=== PATIENT | female | born 1985 | race Caucasian/White ===

== ENCOUNTER 2022-08-06 08:05 | Day surgery (SDC) | payer OTHER ==
[~2022-08-06] VITALS: Ht 157.5 cm; Wt 54.4 kg
--- NOTE | 2022-08-06 07:30 | NUR ---
PT AMBULATED TO ROOM, PT A&OX4. PT HAS BEEN OREINETD TO ROOM, CALL LIGHT AND POC. PT HAS NO QUESTIONS AT THIS TIME. PT BELONGINGS ARE AT BEDSIDE. PT IN NAD. PT HAS CALL LIGHT NEAR AND IS ABLE TO MAKE NEEDS KNOWN. WILL CONTINUE TO MONITOR.
[2022-08-06 07:45] VITALS: BP 102/73
[2022-08-06 08:51] LABS: HEMATOCRIT 33.4 % (37.0-47.0); HEMOGLOBIN 10.9 g/dl (12.0-16.0); IMMATURE GRANULOCYTES 0.1 % (0.0-5.0); MEAN CELL VOLUME 85.6 fL CALC (80.0-100.0); MEAN CORPUSCULAR HGB 27.9 pG CALC (26.0-32.0); MEAN CORPUSCULAR HGB CONC 32.6 g/dL CAL (32.0-36.0); NEUT# 3.45 thou/uL (2.00-7.15); RED BLOOD COUNT 3.9 mill/uL (4.20-5.60)
[2022-08-06] MEDS ORDERED: TRINTELLIX10 MG PO (08:51)
[2022-08-06] MEDS ORDERED: ADDERALL20 MG PO (08:53)
[2022-08-06] MEDS ORDERED: KLONOPIN1 MG PO (08:54)
[2022-08-06] MEDS ORDERED: CRYSELLE-2828 TABS PO (08:54)
[2022-08-06 09:02] LABS: ALBUMIN 3.9 g/dL (3.2-5.0); ALKALINE PHOSPHATASE 101 u/l (38-126); ANION GAP 12 (6-22 (CALC)); BILIRUBIN, TOTAL 0.3 mg/dL (0.0-1.4); BUN 8 mg/dL (7-17); BUN/CREATININE RATIO 14 (12-20 (CALC)); CARBON DIOXIDE 29 mmol/l (22-30); CHLORIDE 103 mmol/l (95-108); CREATININE 0.6 mg/dL (0.5-1.0); GFR FOR AFR.AMER. > 60 ML/MIN (>=60 (CALC)); GFR OTHER RACES > 60 ML/MIN (>=60 (CALC)); POTASSIUM 4.5 mmol/l (3.5-5.1); SGOT/AST 46 u/l (14-36); SODIUM 139 mmol/l (137-146); TOTAL PROTEIN 7.1 g/dL (6.3-8.2)
[2022-08-06 09:45] VITALS: BP 93/53
--- NOTE | 2022-08-06 09:50 | NUR ---
PT REASSESSED PT IS SLEEPING EASILY AROUSED PT HAS C/O TEMPERATURE. BEARHUGGER HAS BEEN PLACED. PT HAS CALL LIGHT NEAR.
--- NOTE | 2022-08-06 13:50 | NUR ---
Induction Note Patient to [facility] procedure room. Time out performed at 1350. Patient placed on monitors, Jayashree hugger, bilateral wrist restraints applied for ET tube protection. Versed 5mg given IV push at 1351 Tourniquet applied to LEFT arm Lidocaine 100mg given [id number] IV push followed by Rocoronium 10mg at 1353 IV push and held for 90 seconds. Propofol bolus of 110mg given at 1355 IV push. Succinylcholine 80mg given IV push at 1356. Smooth intubation with 7.5 ETT. Positive CO2. Positive Auscultation for air exchange. Patient placed on ventilator for spontaneous ventilation. Placed on Propofol IV drip at 1357. OG inserted. Positive air on auscultation. Positive gastric content. Stomach washed at this time.
--- NOTE | 2022-08-06 14:00 | NUR ---
OG close note Stomach washed at this time. Naltrexone 50 mg with Clonidine 0.1 mg via OG tube. OG will be clamped for 45 minutes.
--- NOTE | 2022-08-06 14:45 | NUR ---
OG open note OG open at this time. Gastric content draining into drainage bag. OG to drain for 45 minutes. Propofol will be titrated down based on patient.
--- NOTE | 2022-08-06 15:18 | NUR ---
PT HYPOTENSIVE, ALEXA GTT INFUSING. WILL CONTINUE TO MONITOR AND TITRATE PER PROTOCOL.
--- NOTE | 2022-08-06 15:30 | NUR ---
OG close note Stomach washed at this time. Naltrexone 25 mg via OG tube. OG will be clamped for 45 minutes.
[2022-08-06] MEDS ORDERED: NALTREXONE50 MG PO (16:53)
[2022-08-06] MEDS ORDERED: CLONIDINE0.1 MG PO (16:54)
[2022-08-06] MEDS ORDERED: KLONOPIN2 MG PO (17:00)
--- NOTE | 2022-08-06 18:15 | NUR ---
ORDERS R'CD PT IM INJECTION 25MG OF EPHEDRINE.
--- NOTE | 2022-08-06 19:34 | NUR ---
OG close note Stomach washed at this time. Naltrexone 25 mg via OG tube. OG will be clamped for 45 minutes.
--- NOTE | 2022-08-06 20:14 | NUR ---
Extubation note Closing medications given Benadryl 50mg IV push, Decadron 10mg IV push,Magnesium 4 grams IV, Zofran 8mg IV push, Octreotide 100mcg SC. Stomach washed out prior to extubation. Suctioned gastric content. OG removed. Patient extubated. Propofol Discontinued. Wrist restraints removed. Jayashree hugger Removed. See [facility] Moderate sedate recovery record for further notes and assessment.
--- NOTE | 2022-08-06 20:35 | NUR ---
PT HAS BEEN TRANSFERRED TO [facility] UNIT. PT IS AROUSABLE. PT IS ON 2LNC, PT HAS LR INFUSING @ 125ML/HR. PT VSS. REPORT WAS GIVEN TO ALFONSO BROOKS AND RIN CRUZ. PT BED ALARM ACTIVE. PT BELONGINGS PLACED IN DIRECTORS OFFICE.
[2022-08-06 20:36] VITALS: BP 97/54
--- NOTE | 2022-08-06 20:40 | NUR ---
PT ARRIVED TO [place] ACCOMPANIED BY ALFONSO TRISTAN. RECEIVED BEDSIDE REPORT. PT SLEEPING, STILL DROWSY. EVEN AND UNLABORED RESPIRATIONS; CLEAR LUNG SOUNDS UPON AUSCULTATION. 02 @ 2L VIA NASAL CANNULA IN PLACE. IV SITES HEALTHY AND PATENT. HYPOACTIVE BOWEL SOUNDS X4 QUADRANTS. NON TRACE EDEMA NOTED ON KALIN LOWER EXTREMITIES. BED ALARM ACTIVE AND SAFETY PRECAUTIONS IN PLACE. CALL LIGHT IN REACH.
[2022-08-06 22:43] VITALS: BP 99/55
--- NOTE | 2022-08-06 23:56 | NUR ---
PT RESTING WITH EYES CLOSED. NO DISTRESS OR PAIN NOTED. IV SITE: #18G RT FA, HEALTHY AND PATENT INFUSING FLUIDS PER ORDER. BED ALARM ACTIVE AND SAFETY PRECAUTIONS IN PLACE. CALL LIGHT IN REACH.
[2022-08-07 04:05] VITALS: BP 93/57
--- NOTE | 2022-08-07 04:15 | NUR ---
PT RESTING WITH EYES CLOSED. NO DISTRESS OR PAIN NOTED. IV SITES FLUSHED: # 20 LEFT AC, #18G RT FA, HEALTHY AND PATENT. BED ALARM ACTIVE AND SAFETY PRECAUTIONS IN PLACE. CALL LIGHT IN REACH.
[2022-08-07 05:06] LABS: HEMATOCRIT 39.2 % (37.0-47.0); HEMOGLOBIN 12.7 g/dl (12.0-16.0); IMMATURE GRANULOCYTES 0.1 % (0.0-5.0); MEAN CELL VOLUME 85.4 fL CALC (80.0-100.0); MEAN CORPUSCULAR HGB 27.7 pG CALC (26.0-32.0); MEAN CORPUSCULAR HGB CONC 32.4 g/dL CAL (32.0-36.0); NEUT# 8.36 thou/uL (2.00-7.15); RED BLOOD COUNT 4.59 mill/uL (4.20-5.60); RED CELL DISTRI WIDTH 12.8 % (11.5-15.5)
[2022-08-07 05:47] LABS: ALKALINE PHOSPHATASE 120 u/l (38-126); ANION GAP 18 (6-22 (CALC)); BILIRUBIN, TOTAL 0.5 mg/dL (0.0-1.4); BUN 8 mg/dL (7-17); BUN/CREATININE RATIO 16 (12-20 (CALC)); CARBON DIOXIDE 18 mmol/l (22-30); CHLORIDE 109 mmol/l (95-108); CREATININE 0.5 mg/dL (0.5-1.0); GFR FOR AFR.AMER. > 60 ML/MIN (>=60 (CALC)); GFR OTHER RACES > 60 ML/MIN (>=60 (CALC)); MAGNESIUM 2.2 mg/dL (1.6-2.3); POTASSIUM 4.2 mmol/l (3.5-5.1); SGOT/AST 43 u/l (14-36); SODIUM 141 mmol/l (137-146); TOTAL PROTEIN 6.9 g/dL (6.3-8.2)
[2022-08-07 07:00] VITALS: BP 93/53
--- NOTE | 2022-08-07 07:00 | NUR ---
REPORT RECEIVED FROM [facility] [facility]PM CONSULTANT. PT RESTING IN BED SLEEPING, BREATHING EVEN AND UNLABORED. NO DISTRESS NOTED. FALL/SAFTEY PRECAUITON IN PLACE, CALL LIGHT WITHIN REACH
[2022-08-07 09:46] VITALS: BP 85/47
[2022-08-07 11:55] VITALS: BP 92/56
--- NOTE | 2022-08-07 12:45 | NUR ---
PT HAVING BITES OF FOOD, HIGHLY ENCOURAGED. NO DISTRESS NOTED. FALL/SAFTEY PRECAUTION IN PLACE. CALL LIGHT WITHIN REACH
[2022-08-07 12:54] VITALS: BP 92/56
--- NOTE | 2022-08-07 16:45 | NUR ---
Discharge instructions given. Patient verbalizes understanding of same. Discharged in stable condition via Wheelchair to Home with [facility] staff. All belongings sent with pt.
== END 2022-08-07 16:45 | disposition home or self-care (01) | DRG 897 ==
LOC: ANR 08:05 → ANR-I 08:06 → MS2 18:52 → ANR 08-07 16:45
PROVIDERS: ATTEND Anesthesiology
DX: F11.20 Opioid dependence, uncomplicated (principal)
CPT/HCPCS: J1100; J2354